=== PATIENT | male | born 1990 | race Hispanic/Latino ===

== ENCOUNTER 2018-05-10 18:39 | Emergency (ER) | payer OTHER ==
[~2018-05-10] VITALS: Ht 167.6 cm; Wt 88.0 kg
== END 2018-05-10 20:04 | disposition home or self-care (01) ==
LOC: FSED 18:39
DX: R06.09 Other forms of dyspnea (principal); F41.1 Generalized anxiety disorder
CPT/HCPCS: 80053; 81003; 82553; 84484; 85025; 85379; 93005; 99283